=== PATIENT | female | born 1975 | race American Indian/Alaskan Native ===

== ENCOUNTER 2017-02-04 13:08 | Emergency (ER) | payer MEDICAID, OTHER ==
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
[2017-02-04 14:22] LABS: BASO # 0.1 K/uL (0.0-0.2); BASO % 0.8 % (0.0-2.0); EOS % 0.3 % (0.0-4.0); HEMATOCRIT 37.7 % (34.0-47.0); LYMPH # 3.5 K/uL (1.0-4.3); MEAN CELL VOLUME 90.7 fL (81.0-99.0); MEAN CORPUSCULAR HEMOGLOBIN 29.9 pg (27.0-31.0); MEAN PLATELET VOLUME 8.6 fL (7.2-11.7); MONO # 0.8 K/uL (0.0-0.8); MONO % 5.5 % (0.0-10.0); RED CELL DISTRIBUTION WIDTH 12.9 % (11.5-14.5)
[2017-02-04 14:31] LABS: RBC URINE 1 /hpf (0-3); URINE BILIRUBIN NEGATIVE (NEGATIVE); URINE BLOOD 1+ (NEGATIVE); URINE COLOR Straw (YELLOW); URINE GLUCOSE (UA) NORMAL (Normal); URINE KETONE NEGATIVE (NEGATIVE); URINE LEUKOCYTE ESTERASE NEG Leu/uL (Negative); URINE PROTEIN NEGATIVE (NEGATIVE); URINE UROBILINOGEN NORMAL mg/dL (0.2-1.0); WBC URINE 2 /hpf (0-5)
[2017-02-04 14:32] LABS: CHLORIDE 104 mmol/L (98-107); POTASSIUM 3.1 mmol/L (3.6-5.2); SODIUM 141 mmol/L (132-148)
[2017-02-04 14:34] LABS: AST/SGOT 36 U/L (14-36); BILIRUBIN,TOTAL 0.4 mg/dL (0.2-1.3); CARBON DIOXIDE 23 mmol/L (22-30); GFR AFRICAN-AMERICAN > 60
[2017-02-04 14:35] LABS: ALB/GLOB RATIO 1.5 (1.0-2.1); ALCOHOL SERUM < 10 mg/dl (0-10); ALKALINE PHOSPHATASE 56 U/L (38-126); ALT/SGPT 24 U/L (9-52); BLOOD UREA NITROGEN 13 mg/dL (7-17); CALCIUM 8.3 mg/dl (8.6-10.4); GLUCOSE,RANDOM 118 mg/dL (65-105); TOTAL PROTEIN 7.3 g/dL (6.3-8.3)
[2017-02-04 18:48] VITALS: BP 152/104; PULSE 67; RESP 17; TEMP 98.3; O2SAT 99
--- NOTE | 2017-02-06 14:03 | CARD ---
APPROVED REPORT EKG Measurement Heart [id number] <Conclusion> Normal sinus rhythm Minimal voltage criteria for LVH, may be normal variant Nonspecific ST abnormality Abnormal ECG
== END 2017-02-04 19:00 | disposition home or self-care (01) ==
LOC: C.ER 13:08
DX: F18.180 Inhalant abuse with inhalant-induced anxiety disorder (principal); I10 Essential (primary) hypertension

== ENCOUNTER 2018-08-15 11:54 | Emergency (ER) | payer MEDICAID, OTHER ==
[2018-08-15 12:12] VITALS: BMI 30.9
[2018-08-15 12:17] VITALS: BP 143/98; PULSE 78; RESP 18; TEMP 98.8; O2SAT 99
--- NOTE | 2018-08-15 13:32 | C.PDOC ---
History Of Present Illness 42 y/o female presents to the ER complaining of pain to the plantar aspect of left foot which has been present for the past 3 days. Patient denies having falls, injuries, direct trauma, weakness, and numbness. Time Seen by Provider: 08/15/18 12:38 Chief Complaint (Nursing): Lower Extremity Problem/Injury History Per: Patient History/Exam Limitations: no limitations Onset/Duration Of Symptoms: Days Current Symptoms Are (Timing): Still Present Severity: Moderate Past Medical History Reviewed: Historical Data, Nursing Documentation, Vital Signs Vital Signs: Last Vital Signs Temp 98.8 F 08/15/18 12:12 Pulse 78 08/15/18 12:12 Resp 18 08/15/18 12:12 BP 143/98 H 08/15/18 12:12 Pulse Ox 99 08/15/18 12:12 - Medical History PMH: HTN Denies: Diabetes, Hepatitis, HIV, Seizures, Sexually Transmitted Disease Other Surgeries: Hx of surgeries Family History: States: No Known Family Hx - Social History Hx Alcohol Use: Yes Hx Substance Use: Yes - Immunization History Hx Tetanus Toxoid Vaccination: No Hx Influenza Vaccination: No Hx Pneumococcal Vaccination: No Review Of Systems Except As Marked, All Systems Reviewed And Found Negative. Musculoskeletal: Positive for: Foot Pain (left foot pain) Neurological: Negative for: Weakness, Numbness Physical Exam - Physical Exam Appears: Non-toxic, No Acute Distress Skin: Normal Color, Warm, Dry Head: Atraumatic, Normacephalic Eye(s): bilateral: Normal Inspection Nose: Normal Oral Mucosa: Moist Neck: Supple Chest: Symmetrical Extremity: Normal ROM, Tenderness (tenderness to lateral plantar aspect of foot), No Swelling Neurological/Psych: Oriented x3, Normal Speech Gait: Steady ED Course And Treatment O2 Sat by Pulse Oximetry: 99 (RA) Pulse Ox Interpretation: Normal - Other Rad X-Ray-Left Foot X-Ray: Viewed By Me, Read By Radiologist Interpretation: Date of service: 08/15/2018. PROCEDURE: Left Foot R adiographs. HISTORY: atraumatic pain. COMPARISON: None. FINDINGS: BONES: No evidence of acute displaced fracture nor dislocation. The osseous structures appear intact. No cortical destructive changes.. Tiny posterior calcaneal enthesophyte. JOINTS: Normal. SOFT TISSUES: Normal. OTHER FINDINGS: None. IMPRESSION: No evidence of acute displaced fracture nor dislocation Progress Note: X-Ray-Left Foot ordered. Podiatry resident evaluated the patient, applyed Elliott dressing, ortho shoe was also applied by podiatry resident. Patient was discharged home, referred to for follow up. Disposition - Disposition Referrals: Aleksandr Mora DPM [Medical Doctor] - Disposition: HOME/ ROUTINE Disposition Time: 14:34 Condition: STABLE Additional Instructions: Follow up with PMD and Podiatry within 1-2 days. Return to ED if feel worse. Prescriptions: Naproxen [Naprosyn] 1 tab PO BID PRN #25 tab PRN Reason: Pain Instructions: Stress Fracture of the Metatarsal Bone (DC) Forms: [facility] (Swedish), Work Excuse - Clinical Impression Clinical Impression: Foot pain
--- NOTE | 2018-08-15 13:42 | RAD ---
Date of service: 08/15/2018 PROCEDURE: Left Foot Radiographs. HISTORY: atraumatic pain COMPARISON: None. FINDINGS: BONES: No evidence of acute displaced fracture nor dislocation. The osseous structures appear intact. No cortical destructive changes.. Tiny posterior calcaneal enthesophyte JOINTS: Normal. SOFT TISSUES: Normal. OTHER FINDINGS: None. IMPRESSION: No evidence of acute displaced fracture nor dislocation
--- NOTE | 2018-08-15 19:55 | CP.PCM.CON ---
History of Present Illness - History of Present Illness History of Present Illness: Podiatry consult note for Dr. Mora, 42 y/o female presents to the ER complaining of pain to the plantar aspect of left foot which has been present for the past 3 days. Patient denies having falls, injuries, direct trauma, weakness, and numbness. Patient denies any other pedal complaints. PMHx: Depression, HTN PSHx: Tubal Ligation Medications: Amlodipine, Zoloft Allergies: NKDA Social Hx: admits to ETOH and substance use Review of Systems - Review of Systems All systems: reviewed and no additional remarkable complaints except Review of Systems: As per HPI Past Patient History - Infectious Disease Hx of Infectious Diseases: None - Past Social History Smoking Status: Light Smoker < 10 Cigarettes Daily - CARDIAC Hx Hypertension: Yes - PULMONARY Hx Tuberculosis: No - NEUROLOGICAL Hx Seizures: No - HEMATOLOGICAL/ONCOLOGICAL Hx Human Immunodeficiency Virus (HIV): No - GENITOURINARY/GYNECOLOGICAL Hx Sexually Transmitted Disorders: No - PSYCHIATRIC Hx Substance Use: Yes - SURGICAL HISTORY Hx Surgeries: Yes Hx Tubal Ligation: Yes Meds Home Medications: Home Medication List Medication Instructions Recorded Confirmed Type Naproxen [Naprosyn] 1 tab PO BID PRN #25 tab 08/15/18 Rx Allergies/Adverse Reactions: Allergies Allergy/AdvReac Type Severity Reaction Status Date / Time No Known Allergies Allergy Verified 08/15/18 12:10 Physical Exam - Constitutional Appears: Well, Non-toxic, No Acute Distress - Head Exam Head Exam: ATRAUMATIC, NORMOCEPHALIC - Extremities Exam Additional comments: Left Lower Extremity Exam VASC: DP and PT 2/4 bilaterally, CFT less than 3 seconds x 10, no edema, TG warm to warm WNL DERM: no open lesions, no clinical signs of infection NEURO: grossly intact ORTHO: pain on palpation along the plantar fascia, no pain with AJ, STJ or MTJ ranges of motion, MSK 5/5 - Neurological Exam Neurological exam: Alert, Oriented x3 - Psychiatric Exam Psychiatric exam: Normal Affect, Normal Mood Results - Vital Signs Recent Vital Signs: Last Vital Signs Temp 98.8 F 08/15/18 12:12 Pulse 78 08/15/18 12:12 Resp 18 08/15/18 12:12 BP 143/98 H 08/15/18 12:12 Pulse Ox 99 08/15/18 18:52 Assessment & Plan - Assessment and Plan (Free Text) Assessment: 42 y/o female seen and evaluated for pain to left plantar foot Plan: Patient seen and evaluated Plan discussed with Dr. Mora Chart, labs and vitals reviewed Foot X-ray: no fractures of dislocation Likely etiology discussed with patient Patient Left leg dressed in a Elliott compression and patient provided with a surgical shoe Patient provided with crutches Patient to return to ED if symptoms worsen Thank you for the Podiatry consult - Date & Time Date: 08/15/18 (b) Time: 20:00
== END 2018-08-15 14:50 | disposition home or self-care (01) ==
LOC: C.ER 11:54
DX: M79.672 Pain in left foot (principal); F17.210 Nicotine dependence, cigarettes, uncomplicated; I10 Essential (primary) hypertension

== ENCOUNTER 2018-08-19 16:42 | Emergency (ER) | payer OTHER ==
[2018-08-19 16:42] VITALS: BMI 30.9
[2018-08-19 16:56] VITALS: BP 106/72; PULSE 69; RESP 18; TEMP 97.9; O2SAT 97
--- NOTE | 2018-08-19 17:40 | C.PDOC ---
History Of Present Illness 42 year old female presents to the ED for evaluation of high blood pressure that began a few hours prior to arrival. Patient reports she was at home and felt funny prompting blood pressure check, which measured 106/72. In the ED the patient states she feels better, requests to be discharged home. Denies fever, nausea, vomiting, and any other associated symptoms. Time Seen by Provider: 08/19/18 17:18 Chief Complaint (Nursing): Headache History Per: Patient History/Exam Limitations: no limitations Onset/Duration Of Symptoms: Hrs Current Symptoms Are (Timing): Better Past Medical History Reviewed: Historical Data, Nursing Documentation, Vital Signs Vital Signs: Last Vital Signs Temp 97.9 F 08/19/18 16:52 Pulse 69 08/19/18 16:52 Resp 18 08/19/18 16:52 BP 106/72 08/19/18 16:52 Pulse Ox 97 08/19/18 16:52 - Medical History PMH: HTN Denies: Diabetes, Hepatitis, HIV, Seizures, Sexually Transmitted Disease Family History: States: Unknown Family Hx - Social History Hx Alcohol Use: Yes Hx Substance Use: Yes - Immunization History Hx Tetanus Toxoid Vaccination: No Hx Influenza Vaccination: No Hx Pneumococcal Vaccination: No Review Of Systems Except As Marked, All Systems Reviewed And Found Negative. Constitutional: Positive for: Fever Cardiovascular: Positive for: Other (high blood pressure. ) Gastrointestinal: Negative for: Nausea, Vomiting Physical Exam - Physical Exam Appears: Well, Non-toxic, No Acute Distress, Other (laughing. interactive.) Skin: Normal Color, Warm, Dry Head: Atraumatic, Normacephalic Eye(s): bilateral: Normal Inspection Oral Mucosa: Moist Neck: Normal ROM, Supple Chest: Symmetrical, No Deformity Cardiovascular: Rhythm Regular, No Murmur Respiratory: Normal Breath Sounds, No Rales, No Rhonchi, No Wheezing Gastrointestinal/Abdominal: Normal Exam, Soft, No Tenderness Neurological/Psych: Oriented x3, Normal Speech ED Course And Treatment O2 Sat by Pulse Oximetry: 97 (RA) Pulse Ox Interpretation: Normal Medical Decision Making Medical Decision Making: Progress/Update: Patient requests discharge home. Patient stable for discharge home. refuses any w/u in er. asking kwan c. Disposition - Disposition Disposition: HOME/ ROUTINE Disposition Time: 19:12 Condition: STABLE Additional Instructions: you are declning further eval in the er. you are able to return to any er with any worsening symptoms or concerns. Instructions: High Blood Pressure (DC), Headache, Adult (DC) Forms: [facility] (Central African) - Clinical Impression Clinical Impression: Headache, High blood pressure - Scribe Statement The provider has reviewed the documentation as recorded by the Scribe (Renee Lundberg) Provider Attestation: All medical record entries made by the Scribe were at my direction and personally dictated by me. I have reviewed the chart and agree that the record accurately reflects my personal performance of the history, physical exam, medical decision making, and the department course for this patient. I have also personally directed, reviewed, and agree with the discharge instructions and disposition.
== END 2018-08-19 17:41 | disposition home or self-care (01) ==
LOC: C.ER 16:42
DX: I10 Essential (primary) hypertension (principal); R51 Headache

== ENCOUNTER 2018-11-11 08:28 | Emergency (ER) | payer OTHER ==
[2018-11-11 08:28] VITALS: BMI 30.9
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
[2018-11-11 09:59] VITALS: BP 136/95; PULSE 99; RESP 18; TEMP 97.9
[2018-11-11 13:11] VITALS: O2SAT 99
--- NOTE | 2018-11-11 13:38 | RAD ---
Three views, right 2nd digit radiographs Indication: pain since injury, ? history of fracture Comparison: None available. Findings: Soft tissue swelling of the 2nd digit. Horizontal hyperdensity at the distal aspect proximal 2nd digit of unclear significance. No acute displaced fracture identified. No dislocation. There are no radiopaque foreign bodies identified. Impression: Soft tissue swelling of the 2nd digit. Horizontal hyperdensity at the distal aspect of the proximal 2nd digit of unclear significance. No acute displaced fracture identified.
== END 2018-11-11 09:40 | disposition home or self-care (01) ==
LOC: C.ER 08:28
DX: S93.504 Unspecified sprain of right lesser toe(s) (principal); W01.0XXD Fall on same level from slipping, tripping and stumbling without subsequent striking against object, subsequent encounter; R51 Headache

== ENCOUNTER 2019-02-19 14:04 | Emergency (ER) | payer OTHER ==
[2019-02-19 14:07] VITALS: BMI 32.1
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
[2019-02-19 17:19] VITALS: BP 167/118; PULSE 89; RESP 18; TEMP 97.8
[2019-02-19 17:22] VITALS: O2SAT 97
== END 2019-02-19 17:55 | disposition home or self-care (01) ==
LOC: C.ER 14:04
DX: S20.219A Contusion of unspecified front wall of thorax, initial encounter (principal); S43.401A Unspecified sprain of right shoulder joint, initial encounter; S43.402A Unspecified sprain of left shoulder joint, initial encounter; Y04.0XXA Assault by unarmed brawl or fight, initial encounter; I10 Essential (primary) hypertension

== ENCOUNTER 2019-03-06 10:45 | Emergency (ER) | payer OTHER ==
[2019-03-06 10:45] VITALS: BMI 32.1
[2019-03-06 10:53] VITALS: BP 132/82; PULSE 70; RESP 18; TEMP 98.4; O2SAT 99
[2019-03-06] MEDS ORDERED: Naproxen 550 mg Tab PO STA (11:35)
[2019-03-06] MEDS ORDERED: Naproxen 550 mg Tab PO ONE (11:50)
[2019-03-06] MEDS ORDERED: Rocuronium 10 mg/ml (5 ml) ONE ×2 (12:23→13:14)
[2019-03-06] MEDS ORDERED: Succinylcholine Chloride 20 mg/ml Syr (5 ml) IV ONE (12:24)
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
--- NOTE | 2019-03-07 12:18 | VASCLAB ---
Date of service: 03/06/2019 PROCEDURE: Right Lower Extremity Venous Duplex Exam. HISTORY: thigh pain, r/o DVT PRIORS: None. TECHNIQUE: Right common femoral, femoral, popliteal and posterior tibial, peroneal and great saphenous veins were evaluated. Flow was assessed with color Doppler, compressibility, assessment of phasic flow and augmentation response. Report prepared by JANET Yoo, RVT FINDINGS: RIGHT: 1. Common Femoral Vein: 1.1. Compressibility - Fully compressible: Thrombus - None: Flow - Phasic: Augmentation -Normal: Reflux - None. 2. Femoral Vein: 2.1. Compressibility - Fully compressible: Thrombus - None: Flow - Phasic: Augmentation -Normal: Reflux - None. 3. Popliteal Vein: 3.1. Compressibility - Fully compressible: Thrombus - None: Flow - Phasic: Augmentation -Normal: Reflux - None. 4. Posterior Tibial Vein: 4.1. Compressibility - Fully compressible: Thrombus - None: Flow - Phasic: Augmentation -Normal: Reflux - None. 5. Peroneal Vein: 5.1. Compressibility - Fully compressible: Thrombus - None: Flow - Phasic: Augmentation -Normal: Reflux - None. 6. Great Saphenous Vein: 6.1. Compressibility - Fully compressible: Thrombus -None: Flow - Phasic: Augmentation - Normal: Reflux - None. OTHER FINDINGS: IMPRESSION: No evidence of deep or superficial vein thrombosis of the right lower extremity with excellent venous flow. Normal valve function noted of the right side. Normal venous flow noted in the left common femoral vein.
== END 2019-03-06 14:02 | disposition home or self-care (01) ==
LOC: C.ER 10:45
DX: S76.911A Strain of unspecified muscles, fascia and tendons at thigh level, right thigh, initial encounter (principal); Y08.89XA Assault by other specified means, initial encounter; M79.604 Pain in right leg; I10 Essential (primary) hypertension; F17.210 Nicotine dependence, cigarettes, uncomplicated